=== PATIENT | female | born 1945 | race Caucasian/White ===

== ENCOUNTER → 2022-09-28 08:03 | Outpatient (BNVA) | payer MEDICARE, SELFPAY | PROVIDERS: Referring Provider Nurse Practitioner Family; Visit Provider Student in an Organized Health Care Education/Training Program | DX: M75.101 Unspecified rotator cuff tear or rupture of right shoulder, not specified as traumatic | CPT/HCPCS: 99203 ==

== ENCOUNTER → 2022-09-28 08:15 | Outpatient (BNVA) | payer MEDICARE, SELFPAY | PROVIDERS: Referring Provider Nurse Practitioner Family; Visit Provider Student in an Organized Health Care Education/Training Program | DX: M75.101 Unspecified rotator cuff tear or rupture of right shoulder, not specified as traumatic (principal) | CPT/HCPCS: 73030 ==

== ENCOUNTER 2022-10-27 10:26 | Outpatient (RCR) | payer MEDICARE, SELFPAY | END 2022-11-10 23:59 | disposition home or self-care (01) | LOC: SPT 10:26 | PROVIDERS: PCP Nurse Practitioner Family; Visit Provider Student in an Organized Health Care Education/Training Program | DX: M75.101 Unspecified rotator cuff tear or rupture of right shoulder, not specified as traumatic (principal) | CPT/HCPCS: 97110; 97161; 97530 ==

== ENCOUNTER → 2022-12-22 13:34 | Outpatient (BNVA) | payer MEDICARE, SELFPAY | PROVIDERS: PCP Nurse Practitioner Family; Visit Provider Student in an Organized Health Care Education/Training Program | DX: M75.101 Unspecified rotator cuff tear or rupture of right shoulder, not specified as traumatic (principal) | CPT/HCPCS: 99213 ==

== ENCOUNTER → 2023-08-12 10:58 | Outpatient (BNVA) | payer MEDICARE, SELFPAY | PROVIDERS: PCP Nurse Practitioner Family; Referring Provider Nurse Practitioner Family; Visit Provider Physician Assistant | DX: M17.11 Unilateral primary osteoarthritis, right knee | CPT/HCPCS: 20610; 73560; 73565; 99213; J3301 ==

== ENCOUNTER → 2023-09-02 10:45 | Outpatient (BNVA) | payer MEDICARE, SELFPAY | PROVIDERS: PCP Nurse Practitioner Family; Visit Provider Student in an Organized Health Care Education/Training Program | DX: S46.001A Unspecified injury of muscle(s) and tendon(s) of the rotator cuff of right shoulder, initial encounter (principal); M75.41 Impingement syndrome of right shoulder; X58.XXXA Exposure to other specified factors, initial encounter | CPT/HCPCS: 99213 ==

== ENCOUNTER 2023-09-29 13:00 | Outpatient (CLI) | payer MEDICARE, SELFPAY ==
--- NOTE | 2023-09-29 13:00 | MR_ITS ---
WS: [id number] MRI RIGHT SHOULDER HISTORY: right shoulder pain COMPARISON: Radiograph 09/28/2022 TECHNIQUE: Multiplanar sequences of the shoulder joint are submitted. Mild AC joint arthropathy. Mild downsloping of the acromion and subacromial impingement. Small amount of fluid in the subacromial and subdeltoid bursa. No os acromion. Normal position of the biceps tend on. Mildly high riding humeral head. Moderate degenerative changes at the glenohumeral joint. Moderate at rophy of the supraspinatus muscle. The very distal supraspinatus tendon is not identified. There does appear to be a tear distally with slight retraction of the tendon. The distal tendon is very thin ca liber. Infraspinatus and the subscapularis tendons appear to be intact. Normal teres minor. No labral tear identified. There is some intrasubstance degeneration particularly within the superior labrum. MR/MR shoulder RT wo con* [id number] IMPRESSION: 1. Insertion site tear of the distal supraspinatus tendon with slight retracti on of the tendon. The distal tendon is a very thin caliber. 2. Moderate supraspinatus muscle atrophy. 3. High riding humeral head. 4. Downsloping of the acromion with subacromial impingement. 5. Mild AC joint arthropathy. 6. Moderate glenohumeral joint degenerative changes.
== END 2023-09-29 13:01 | disposition home or self-care (01) ==
PROVIDERS: PCP Nurse Practitioner Family; Visit Provider Student in an Organized Health Care Education/Training Program
DX: M19.011 Primary osteoarthritis, right shoulder (principal); S46.011A Strain of muscle(s) and tendon(s) of the rotator cuff of right shoulder, initial encounter; M62.511 Muscle wasting and atrophy, not elsewhere classified, right shoulder; M75.41 Impingement syndrome of right shoulder
CPT/HCPCS: 73221

== ENCOUNTER → 2023-10-05 13:18 | Outpatient (BNVA) | payer MEDICARE, SELFPAY | PROVIDERS: PCP Nurse Practitioner Family; Visit Provider Student in an Organized Health Care Education/Training Program | DX: M75.101 Unspecified rotator cuff tear or rupture of right shoulder, not specified as traumatic; M75.41 Impingement syndrome of right shoulder; M19.011 Primary osteoarthritis, right shoulder | CPT/HCPCS: 99214 ==

== ENCOUNTER 2023-12-01 10:57 | Day surgery (SDC) | payer MEDICARE, SELFPAY ==
[2023-12-01] VITALS (11 sets, daily range): BP systolic 152–186; BP diastolic 59–91; PULSE 63–79; RESP 8–20; TEMP 36.1–36.3; O2SAT 92–100
[2023-12-01] MEDS: sodium chloride 0.9% 1,000 ML 30 ML IV (11:43)
[2023-12-01] MEDS: acetaminophen 1,000 MG/100 ML PIGGYBACK 400 MG IV (11:44)
[2023-12-01] MEDS: ketorolac 30 mg/mL INJ IVP (11:46)
--- NOTE | 2023-12-01 11:48 | ECG_ITS ---
[facility] Test Date: 2023-12-01 Pat Name: Barbara Mejía Department: Room: Gender: Female Service Writer: : 1945 Requested By: Galindo Duckworth Order Number: [id number] Luis Eduardo MD: Sandra Belle M.D. Measurements Intervals [place] Rate: 73 P: 64 FL: 184 QRS: 42 QRSD: 88 T: 40 QT: 403 QTc: 445 Interpretive Statements SINUS RHYTHM No previous ECG available for comparison Electronically Signed On 12-02-2023 22:39:46 CDT by Sandra Belle M.D. [id number]
[2023-12-01 12:07] LABS: Basophils % 0.6 %; Eosinophils # 0.1 10^3/uL (0.0-0.8); Eosinophils % 1.2 %; Hematocrit 40.8 % (36-47); Lymphocytes # 1.6 10^3/uL (0.8-4.8); Lymphocytes % 33.3 %; Mean Corpuscular HGB Conc 32.4 g/dL (30-55); Mean Corpuscular Hemoglobin 31.9 pg (27-33); Mean Corpuscular Volume 98.6 fl (85-98); Mean Platelet Volume 9.7 fL (7.4-10.4); Monocytes # 0.5 10^3/uL (0.2-0.9); Monocytes % 9.3 %; Neutrophils # 2.71 10^3/uL (1.8-7.7); Neutrophils % 55.2 %; Nucleated Red Blood Cells % 0 %; Platelet Count 278 10^3/cmm (157-399); Red Blood Count 4.14 10^6/uL (3.85-5.65); Red Cell Distribution Width 12.9 % (12.1-15.1); White Blood Count 4.92 10^3/uL (3.29-11.43)
--- NOTE | 2023-12-01 12:15 | ANES.PREANE2 ---
Pre-Anesthetic Assessment Height/Weight: Height 5 ft 2 in Weight 206 lb Temp Pulse Resp BP Pulse Ox O2 Del Method 97.3 F L 79 18 186/89 96 Room Air 12/01/23 11:32 12/01/23 11:32 12/01/23 11:32 12/01/23 11:32 12/01/23 11:32 12/01/23 11:32 Preop Diagnosis: Rotator cuff tear Operation Date: 12/01/23 13:10 Proposed Procedures p Shoulder Arthroscopy(Right) - Bernabe Lavelle, DO s AC Joint Resection(Right) - Bernabe Lavelle, DO s rotator cuff debridement versus repair(Right) - Bernabe Lavelle, DO s Subacromial Decompression(Right) - Bernabe [place], DO Was Beta Nathan taken within 24 hours: N/A Was Clonidine taken within 24 hours: N/A Last intake: Intake Last Liquid Date 11/30/23 Last Liquid Time 21:30 Last Solid Date 11/30/23 Last Solid Time 20:30 Social No alcohol and No tobacco Exam alert, oriented x 3, clear to auscultation bilaterally and regular rate & rhythm Airway Submandibular: within normal limits Cervical ROM: within normal limits Mallampati: Class III Dentition: full Anesthetic Plan ASA status: 3 Anesthesia: General Other: No prior issues with anesthesia NPO since yesterday History of hypertension, on amlodipine JEREMIE, no CPAP Asthma, no inhaler use EKG showing sinus rhythm Plan for general anesthesia with peripheral nerve block Medications/Allergies Home Medications Medication Instructions Recorded Confirmed Last Taken Type amlodipine 5 mg tablet 5 mg PO DAILY 09/28/22 12/01/23 11/30/23 History atorvastatin 40 mg tablet 40 mg PO DAILY 09/28/22 12/01/23 11/30/23 History hydrocodone 5 mg-acetaminophen 325 1 tab PO Q6H PRN pain 5 days #20 12/01/23 Unknown Rx mg tablet tabs ondansetron 4 mg disintegrating 4 mg PO Q8H PRN nausea and 12/01/23 Unknown Rx tablet vomiting 3 days #9 tabs Allergies Allergy/AdvReac Type Severity Reaction Status Date / Time Sulfa (Sulfonamide Allergy rash Verified 11/30/23 13:00 Antibiotics) Current Medications Generic Name Dose Route Start Last Admin Trade Name Freq PRN Reason Stop Dose Admin Sodium Chloride 1,000 mls @ 30 mls/hr 12/01/23 11:30 12/01/23 11:43 Sodium Chloride 0.9% IV 12/02/23 11:29 30 mls/hr .Q24H JOSE Administration PFSH Anesthesia Social History Smoking and tobacco/nicotine status: never used tobacco/nicotine Second hand smoke exposure: No Alcohol intake: current Alcohol intake frequency: other Alcohol type: wine Substance/Drug Use: never Adopted: No Caregiver/support person: Yes Lives independently: No Household members: family Housing: House Number of children: 4 Number of grandchildren: 6 Highest education level completed: High School Graduate service: No Current occupational status: retired Current occupational exposures/hazards: No Pets and animals: Yes Do you think of yourself as: Straight/Heterosexual Current gender identity: Female Jo/Cheondoism: Bahai Special jo needs: No Agree to transfusion: Yes Data Anesthesia 12/01/23 11:50 12/01/23 11:50 Short CBC 12/01/23 Range/Units 11:50 WBC 4.92 (3.29-11.43) 10^3/uL Hgb 13.20 (11.27-16.99) g/dL Hct 40.8 (36-47) % MCV 98.6 H (85-98) fl Plt Count 278 (157-399) 10^3/cmm Neut % (Auto) 55.2 % Neut # (Auto) 2.71 (1.8-7.7) 10^3/uL Cardiac Studies: No Data to Display
[2023-12-01 12:25] LABS: Anion Gap 12.8 (5-19); Blood Urea Nitrogen 16 mg/dL (8-23); Carbon Dioxide 29 mmol/L (22-29); Chloride 106 mmol/L (98-107); Glucose 148 mg/dL (65-115); Osmolality Calculated 302 mOsm/kg (285-295); Potassium 3.8 mmol/L (3.5-5.1); Sodium 144 mmol/L (136-145)
--- NOTE | 2023-12-01 12:28 | P.HP_ITS ---
Same Day Surgery H&P Indication for Procedure/HPI DATE OF PROCEDURE: December 01, 2023 CHIEF COMPLAINT/INDICATIONFOR SURGICAL PROCEDURE: Right shoulder rotator cuff tear, AC joint arthritis, subacromial impingement, biceps tendinitis PREOP DIAGNOSIS: Right rotator cuff tear, AC joint thrice, subacromial impingement, biceps t PLANNED PROCEDURE: Operation Date: 12/01/23 13:10 Proposed Procedures p Shoulder Arthroscopy(Right) - Bernabe Lavelle, DO s AC Joint Resection(Right) - Bernabe Lavelle, DO s rotator cuff debridement versus repair(Right) - Bernabe [place], DO s Subacromial Decompression(Right) - Bernabe [place], DO Medications/Allergies* Home Medications Medication Instructions Recorded Confirmed Type amlodipine 5 mg tablet 5 mg PO DAILY 09/28/22 12/01/23 History atorvastatin 40 mg tablet 40 mg PO DAILY 09/28/22 12/01/23 History Allergies/Adverse Reactions Allergy/AdvReac Type Severity Reaction Status Date / Time Sulfa (Sulfonamide Allergy rash Verified 11/30/23 13:00 Antibiotics) Current Medications: Generic Name Dose Route Start Last Admin Trade Name Freq PRN Reason Stop Dose Admin Sodium Chloride 1,000 mls @ 30 mls/hr 12/01/23 11:30 12/01/23 11:43 Sodium Chloride 0.9% IV 12/02/23 11:29 30 mls/hr .Q24H JOSE Administration Pertinent History/Comorbid Conditions* Social History Smoking and tobacco/nicotine status: never used tobacco/nicotine Second hand smoke exposure: No Alcohol intake: current Alcohol intake frequency: other Alcohol type: wine Substance/Drug Use: never Adopted: No Caregiver/support person: Yes Lives independently: No Household members: family Housing: House Number of children: 4 Number of grandchildren: 6 Highest education level completed: High School Graduate service: No Current occupational status: retired Current occupational exposures/hazards: No Pets and animals: Yes Do you think of yourself as: Straight/Heterosexual Current gender identity: Female Jo/Holiness: Congregation Special jo needs: No Agree to transfusion: Yes Pertinent Exam Findings alert, oriented x 3, operative site marked and procedure specific exam findings Please refer to detailed orthopedic examination on 10/04/2023: Right shoulder examination of the cervical spine reveals no pain with range of motion. There is no pain with palpation over the spinous processes or the paraspinal musculature. A negative Spurlings test is noted. There is some tenderness over the trapezius muscle on the right.. There is no scapular tenderness. Exam of both upper extremities shows no pain on range of motion of the elbows wrists or hands. There is full range of motion of these joints. There is no atrophy noted about the right shoulder. The right shoulder shows marked pain on range of motion, primarily abduction as well as forward flexion. There is pain on abduction against resistance, pain over the leading edge of the acromion. There is some pain near the AC joint on the left compared to the right. There is full internal and external rotation with 5/5 strength noted with the elbows at the side. There is pain with Jobes test and weakness noted. There is weakness with a positive two finger drop arm test. A positive Woodward impingement test is noted, positive crossover arm Neer's test, positive obriens, positive speeds Recommendations Surgery/Procedure today Other Plans: Plan to proceed to the OR today for right shoulder diagnostic and surgical arthroscopy with AC joint resection, subacromial decompression, rotator cuff debridement versus repair, possible biceps tenotomy versus tenodesis, possible subacromial balloon spacer. Patient understands the ins and outs procedure the risk benefits complication alternatives of surgery and through shared decision making she elects proceed with surgical intervention at this time. All questions answered. Coding Level of Care Code Acute Code for Blancag Fwbethanie
--- NOTE | 2023-12-01 12:52 | PC.NURSE ---
Time out performed at 1240 for pt block the anesthesiologist obtained consent and discussed risks and benefits for doing the block for the pt shoulder to help with pain management. Pt. was then placed on monitors for oxygen and heart rhythm plus 2l of oxygen was delivered through a nasal cannula. performed a right intersalene block in the pt shoulder pt also given 4mg decadron for comfort then the block was performed using 25cc of 0.5% ropivicaine pt tolerated procedure well
[2023-12-01] MEDS: ceFAZolin 2,000 MG in sodium chloride 0.9% (plus) 50 ML 100 MG IV (13:10)
--- NOTE | 2023-12-01 15:16 | P.OP_ITS ---
Operative Report Date of procedure: December 01, 2023 Surgeon: Bernabe Valderrama DO Superintendent [employer]: Efren Valderrama PA-C: PA was necessary for assistance in this case with shoulder positioning to execute the procedure, assistance with instrumentation, as well as implant fixation when necessary, assist with wound closure and dressing application. Procedure: Preoperative diagnosis: Right shoulder rotator cuff tear, AC joint arthritis, subacromial impingement, biceps tendinitis Post-op diagnosis: Right?shoulder?labral tear Right?shoulder?biceps tendon tear Right?shoulder?rotator cuff tear Right?shoulder?AC joint arthritis Right?shoulder?subacromial bursitis/impingement Procedure done: Right?shoulder?diagnostic and surgical?arthroscopy with?arthroscopic rotator cu ff repair (large) Right?shoulder?diagnostic and surgical?arthroscopy biceps tenotomy Right?shoulder?diagnostic and surgical?arthroscopy labral debridement Right?shoulder?diagnostic and surgical?arthroscopy acromioclavicular joint resection Right?shoulder?diagnostic and surgical?arthroscopy subacromial decompression (acromioplasty and bursectomy) Right shoulder diagnostic and surgical arthroscopy with subacromial balloon spacer Surgeon: Bernabe Valderrama DO Estimated blood loss: 10mL IV fluids: 900 mL Implants: Arthrex rotator cuff double row speed bridge kit Arthrex fiber link suture Arthrex 3.5 push lock anchor Ronda subacromial balloon and space medium Complications: None Condition: stable Disposition: same day Brief History: Patient been seen and worked up in the outpatient setting for right?shoulder?pain.? Pt had an MRI which showed findings below.? Patient's failed conservative treatment and has weakness.? We talked about treatment options far as nonoperative and operative intervention..? We talked about risk benefits complication alternatives surgical nonsurgical treatment options.? Understanding risk of surgery patient agrees to proceed with surgical intervention for right shoulder diagnostic and surgical arthroscopy with AC joint resection, subacromial decompression, rotator cuff debridement versus repair, possible biceps tenotomy versus tenodesis, possible subacromial balloon spacer.? All questions have been answered at this time.? Patient elects proceed with surgery and consent obtained in office. MR/MR shoulder RT wo con* [id number] IMPRESSION: 1. Insertion site tear of the distal supraspinatus tendon with slight retraction of the tendon. The distal tendon is a very thin caliber. 2. Moderate supraspinatus muscle atrophy. 3. High riding humeral head. 4. Downsloping of the acromion with subacromial impingement. 5. Mild AC joint arthropathy. 6. Moderate glenohumeral joint degenerative changes. Procedure: Patient seen evaluated in the preoperative holding area.? Consent reviewed and signed with patient.? Once again reviewed patient's MRI results as well as? planned surgical intervention.? Correct extremity marked.? Patient seen evaluated by anesthesia department received regional anesthesia.? Once ready for surgery was taken back to the operative suite.? Patient then subsequently underwent anesthesia per the anesthesia department was transported onto the OR table.? Patient was then placed into a lateral decubitus position with a beanbag and was appropriately secured to the bed.? All bony prominences well-padded.? Patient then had the right upper extremity was then prepped and draped in standard orthopedic fashion.? Patient received appropriate preoperative antibiotics.? Final timeout performed. The right upper extremity was then held in hanging from traction utilizing sterile technique.? Next started with standard diagnostic and surgical?arthroscopy with posterior portal position introduced?arthroscope into the glenohumeral joint.? Visualized the glenohumeral joint I then introduced a spinal needle within the rotator cuff interval to confirm appropriate anterior portal placement.? Once this was confirmed I then made my small incision and then introduced my?arthroscopic shaver into the glenohumeral joint.? After thorough debridement was clearly evident patient had a significant erythema as well as positive liftoff sign of the biceps anchor and biceps tendon tear as it was pulled within the joint.? Decision at this time was made to perform a biceps tenotomy.? Introduced a thermal wand and a biceps tenotomy was performed to completion With appropriate release.? Next I evaluated the subscapularis tendon which was intact and no evidence of tear. ?Next there was significant labral tearing at biceps anchor and circumferential.? ? I then subsequently utilized a a?arthroscopic shaver and thermal wand to perform a labral debridement.? This point time I then visualized the glenohumeral joint.? The glenohumeral joint was found to have grade 3? chondromalacia throughout. No unstable chondral flaps were noted.? Axillary pouch was free of loose bodies from viewing the posterior portal.? Next a visualized the rotator cuff superiorly and there was found to insertional site rotator cuff tear there did not appear to be significantly thinned tissue and you could see the rotator cable being retracted all the way to the glenohumeral joint this is consistent with a large rotator cuff tear. At this point in time I utilized spinal needle to cynthia dislocation proceed to the subacromial space. This completed my work within the glenohumeral joint all fluid was suctioned free of the joint.? ?Next I reintroduced the?arthroscope posteriorly.? And went to the subacromial space.? I established my lateral working portal at the site of which my spinal needle was marking of the rotator cuff tear.? Thermal wand was then introduced laterally and then I subsequently performed extensive bursectomy of the subacromial space.? Patient had a large anterior bone spur.? At this point time I proceeded with my AC joint resection thermal wand was used and track to the anterior edge of the acromion and then tracked all the way to the AC joint.? Once identified the AC joint this was very arthritic in nature.? Thermal wand was placed anteriorly to establish appropriate plane for AC joint resection.? Once appropriate margins and anterior inferior and anterior capsule was released I then introduced?arthroscopic shaver and a bur and performed AC joint resection of both the acromion to cope plane at the AC joint and a distal clavicle resection was then performed totaling 1 cm in size and was confirmed.? This completed my AC joint resection and I then introduced the?arthroscopic shaver laterally while continuing to view posteriorly.? I then performed an acromioplasty to complete my subacromial decompression prior to fixing the rotator cuff tear.? Next the?arthroscopic shaver was then used previous spinal needle spot that is marked the hole of the rotator cuff. Initially this hole appeared to be small however it was noticed that patient had only a thin less than 5% of residual rotator cuff noted I then introduced the arthroscopic shaver to debride this nonviable rotator cuff tissue and identified the main rotator cable which was retracted all the way to the glenohumeral joint. At this point time I utilized arthroscopic shaver to debride both above and below the rotator cuff tear this was determined to be large in size and would be amenable for double row speed bridge repair. I was able to get enough tendon excursion I had to medialized the footprint slightly with an arthroscopic bur but ultimately deemed that this would be amendable for a rotator cuff repair. At this point in time I once again confirmed with the arthroscopic tissue grasper the location and direction for the repair site. Once I satisfied with this I utilized the arthroscopic bur to medialized the articular footprint and medial footprint of the supraspinatus tendon I then subsequently debrided out the entire footprint to healthy bleeding bone. Once this was done I then placed my additional 2 medial anchors. These were double loaded with suture tape. These were then subsequently passed from anterior to posterior fashion around the rotator cuff tear. I then subsequently grabbed suture 1 and 3 and loaded this for a anterior lateral row anchor. These were kept under appropriate tension a punch was then placed and then advanced a 4.75 swivel lock keeping appropriate tension and had excellent fixation I then removed all excess suture which was cut with an arthroscopic suture cutter. Next I then loaded suture 2 and 4 from the rotator cuff medially and then subsequently punched and placed a 4.75 swivel lock suture anchor with these in the lateral and posterior suture anchor. This had excellent fixation and reapproximated the rotator cuff over nicely. There was a small dog-ear which I subsequently utilized an Arthrex fiber link and loaded this onto a 3.5 push lock and then had excellent fixation out of this. Sutures were then cut with an?arthroscopic suture cutter and subsequently evaluated the rotator cuff repair.? Repair was found to be satisfactory?shoulder?was taken through range of motion and the repair moved as a unit with no evidence of loss of fixation. I then switched the?arthroscope to the lateral portal to confirm this tension- free repair.? I took the?shoulder?through range of motion and the rotator cuff repair was stable and moved as a unit. Next I then introduced the?arthroscopic shaver posteriorly to complete my subacromial decompression appropriate complaining all the way up to the lateral edge of the acromion. Given patient diffusely had thinner tendon quality and given her age and the propensity and mobilization I had to do to get this rotator cuff repaired I do feel as though she would benefit from a subacromial balloon spacer given the large nests of the repair as well as the poor tissue quality and given her age. I feel as though this would offer a buffer in the likelihood that the rotator cuff would fail given this was a large repair in an 78-year-old female as well as this would help continue augment the compression of the rotator cuff on the footprint further augmenting the healing at the repair site. I elected for a subacromial balloon spacer. As a result I utilized Jojo's orthopedic Inspace?subacromial balloon system. I subsequently made an appropriate measurement selected appropriate sized medium balloon I then opened up lateral portal site to accommodate for the?subacromial balloon inserting device this was placed into appropriate position to its black line and then the battery vent plug inserter sheath was subsequently removed and the?subacromial balloon was exposed I then subsequently filled this up to the appropriate fluid volume per the size and per Ronda's orthopedic?subacromial balloon and space protocol this was subsequently insufflated had excellent positioning and at this point in time I utilized the release on the device and the guide was then subsequently removed and?subacromial balloon spacer remained in excellent position shoulder was taken through range of motion and balloon had excellent positioning and stable as well as protection of the rotator cuff repair.? This completed the procedure. ? All fluid was suctioned from the?shoulder.? All instruments were removed.? The lateral incision was then closed with nylon stitches.? As well as the portal sites closed with portal nylon stitches.? Xeroform 4 x 4's ABD and tape was then applied to the right?shoulder?and was placed into a?shoulder?abduction pillow sling for rotator cuff repair.? Patient was then awakened from anesthesia and then taken back to PACU in stable condition.? Patient tolerated procedure without any issues. Disposition: Patient taken back in stable condition recovering well.? Dressings on in place clean dry and intact.? Will be nonweightbearing to the right upper extremity.? Follow rotator cuff repair protocol.? Patient to follow-up with me in the office in 2 weeks.? Patient will receive appropriate discharge instruction as well as pain medication postoperatively.? All questions answered.? We will contact the office for any questions or concerns.
--- NOTE | 2023-12-01 15:17 | W.PM.BPON ---
Date of Procedure: [December 01, 2023] Surgeon: [Dr. Valderrama DO] Eligibility Services Representative(s): [Efren Valderrama PA-C] Procedure(s) performed: [Right shoulder surgical and diagnostic arthroscopy Biceps tenotomy Rotator cuff repair (large) Subacromial decompression Labral debridement AC joint resection Subacromial balloon spacer] Findings of the procedure(s): [Right shoulder labral tear, grade 3 glenohumeral chondromalacia, AC joint arthritis, subacromial bursitis, large rotator cuff tear, biceps tear] Estimated blood loss: [10 mL] Specimen(s) removed: [N/A] Post-operative diagnosis: [Right shoulder labral tear, grade 3 glenohumeral chondromalacia, AC joint arthritis, subacromial bursitis, large rotator cuff tear, biceps tear]
--- NOTE | 2023-12-01 15:24 | PM.PACU ---
PACU note Narrative: Patient is an 78-year-old female that just underwent a right shoulder arthroscopy. Patient transferred to PACU in stable condition. Pain is well controlled. shoulder Dressing on , dry and in place. Patient's operative arm is in a shoulder immobilizer. Patient is awake and alert. Patient's fingers are warm with good perfusion. Normal cap refill under 2 seconds. Unable to assess further range of motion in arm due to sling. Unable to assess sensation due to residual localized anesthetic. Exam: awake Disposition: discharged
--- NOTE | 2023-12-01 15:48 | ANES.PROC ---
Anesthesia Procedures Procedure/Date: 12/01/23 Nerve Block ^: Nerve Block 1: Main Anesthesia: other (100 fentanyl) Time Out Performed: Yes Consent: from patient Nerve block location: interscalene Anesthesia monitors applied: pulse oximetry, EKG, BP cuff and oxygen Nerve block position: semi sitting Anesthetic Used: ropivicaine 0.5% Amount of anesthesia used (mL): 25 Ultrasound used to: recognize landmarks Nerve Stimulator Used?: Yes Interscalene/Femoral BLK: other needle (Pjunk) and visualize local anesthetic spread Injection: neg aspiration of heme Patient Tolerated Procedure: well Complications: none
[2023-12-01] MEDS: ondansetron 2 mg/ML SDV 2 mL 4 MG IVP (16:20)
--- NOTE | 2023-12-01 17:03 | ANE.PACU2 ---
Inpatient post-anesthesia follow up: Airway intact: Yes Vital signs: Temperature 97.0 F Pulse Rate 63 Respiratory Rate 14 Blood Pressure 166/91 Pulse Oximetry 92 Oxygen Delivery Me thod Room Air Oxygen Flow Rate 8 Fraction of Inspir ed Oxygen Hydration adequate: Yes Nausea and vomiting: No Pain level: 1 Mental status: Baseline
== END 2023-12-01 16:50 | disposition home or self-care (01) ==
PROVIDERS: Student in an Organized Health Care Education/Training Program; PCP Nurse Practitioner Family; Visit Provider Student in an Organized Health Care Education/Training Program
PROC: (CPT 29805; principal; 2023-12-01 12:50)
PROC: (CPT 24310; 2023-12-01 12:50)
PROC: (CPT 29824; 2023-12-01 12:50)
PROC: 0RSG0ZZ Reposition Right Acromioclavicular Joint, Open Approach (ICD-10-PCS; CPT 29824; 2023-12-01 12:50)
DX: M75.101 Unspecified rotator cuff tear or rupture of right shoulder, not specified as traumatic (principal); S46.121A Laceration of muscle, fascia and tendon of long head of biceps, right arm, initial encounter; X58.XXXA Exposure to other specified factors, initial encounter; M19.011 Primary osteoarthritis, right shoulder; M25.811 Other specified joint disorders, right shoulder
CPT/HCPCS: 29824; 29826; 29827; 29828; 36415; 80048; 85025; 93005; C1713; C1889; J0131; J0690; J1100; J1885; J2405; J2704; J3010; J3490; J7030

== ENCOUNTER → 2023-12-21 08:28 | Outpatient (BNVA) | payer MEDICARE, SELFPAY | PROVIDERS: PCP Nurse Practitioner Family; Visit Provider Physician Assistant | DX: Z98.890 Other specified postprocedural states (principal) | CPT/HCPCS: 99024 ==

== ENCOUNTER → 2024-02-01 15:14 | Outpatient (BNVA) | payer MEDICARE, SELFPAY | PROVIDERS: PCP Nurse Practitioner Family; Visit Provider Physician Assistant | DX: Z98.890 Other specified postprocedural states (principal) | CPT/HCPCS: 99024 ==

== ENCOUNTER → 2024-03-30 08:15 | Outpatient (BNVA) | payer MEDICARE, SELFPAY | PROVIDERS: PCP Nurse Practitioner Family; Visit Provider Physician Assistant | DX: Z98.890 Other specified postprocedural states (principal) | CPT/HCPCS: 99213 ==

== ENCOUNTER → 2025-01-30 10:41 | Outpatient (BNVA) | payer MEDICARE, SELFPAY | PROVIDERS: PCP Nurse Practitioner Family; Visit Provider Physician Assistant | DX: M75.102 Unspecified rotator cuff tear or rupture of left shoulder, not specified as traumatic (principal); M12.812 Other specific arthropathies, not elsewhere classified, left shoulder | CPT/HCPCS: 20610; 73030; 99213; J3301; J9999 ==